=== PATIENT | male | born 1985 | race Caucasian/White ===

== ENCOUNTER 2023-10-10 08:51 | Outpatient (CLI) | payer BC | END 2023-10-10 08:52 | disposition home or self-care (01) | LOC: CT 08:51 | PROVIDERS: ATTEND Orthopaedic Surgery | DX: M17.32 Unilateral post-traumatic osteoarthritis, left knee (principal) ==

== ENCOUNTER 2023-10-17 12:59 | Outpatient (CLI) | payer BC | END 2023-10-17 13:00 | disposition home or self-care (01) | LOC: LABBT 12:59 | PROVIDERS: ATTEND Orthopaedic Surgery | DX: Z01.818 Encounter for other preprocedural examination (principal); M17.32 Unilateral post-traumatic osteoarthritis, left knee | CPT/HCPCS: 71046; 93005; 93010 ==

== ENCOUNTER 2023-10-22 05:37 | Observation (INO) | payer BC ==
[2023-10-17 13:51] VITALS: BMI 35.5
[2023-10-17 14:57] LABS: #Basophils 0.07 10x3/uL (0.0-0.2); #Monocytes 0.58 10x3/uL (0.0-1.1); #Neutrophils 5.95 10x3/uL (1.5-8.4); %Basophils 0.8 % (0.0-2.0); %Eosinophils 2.3 % (0.0-6.0); %Lymphocytes 21.8 % (18.0-47.0); %Monocytes 6.6 % (0.0-10.0); %Neutrophils 68.2 % (40.0-75.0); Hematocrit 46.7 % (38.8-50.0); Mean Corpuscular HGB CONC 34.3 g/dL (32.0-36.0); Mean Corpuscular Hemoglobin 30.4 pg (27.0-33.0); Mean Corpuscular Volume 88.8 fl (81.2-95.1); Mean Platelet Volume 10.7 fl (7.4-10.4); Platelet Count 233 10x3/uL (150-450); RBC Distribution Width 13.5 % (11.5-14.5); Red Blood Cell (RBC) Count 5.26 10x6/uL (4.32-5.72); White Blood Cell (WBC) Count 8.7 10x3/uL (3.5-10.5)
[2023-10-17 15:05] LABS: INR-International Normal Ratio 0.9; Prothrombin Time 9.6 sec (9.5-12.1)
[2023-10-17 15:11] LABS: Anion Gap 15 mmol/L (10-20); BUN (Urea Nitrogen) 15 mg/dL (8.9-20.6); Calc. Creatinine Clearance 0 mL/min (70-130); Calcium 9.1 mg/dL (7.8-10.44); Carbon Dioxide 20 mmol/L (22-29); Chloride 107 mmol/L (98-107); Estimated GFR 112; Glucose 93 mg/dL (70-105); Potassium 3.9 mmol/L (3.5-5.1); Sodium 138 mmol/L (136-145)
[2023-10-17 15:29] LABS: Bilirubin Neg (Negative); Blood, Urine Negative (Negative); Clarity Clear (Clear); Glucose, Urine (Dipstick) Normal (Negative); Ketone, Urine Negative (Negative); Leukocyte Negative (Negative); Nitrite Negative (Negative); Protein, Urine (Dipstick) Negative (Neg-Trace); Urobilinogen Normal mg/dL (Less than 2)
[2023-10-22] MEDS ORDERED: Sodium Chloride 0.9% 100 ML ONE ×3 (06:08→07:00)
[2023-10-22] MEDS ORDERED: Tranexamic Acid 1,000 MG/10 ML VIAL ONE (06:08)
[2023-10-22] MEDS ORDERED: PROPOFOL 40 ML ONE (06:25)
[2023-10-22] MEDS ORDERED: Fentanyl 250 MCG/5 ML VIAL ONE (06:25)
[2023-10-22] MEDS ORDERED: Midazolam HCl 2 mg/2 ml Vial ONE (06:26)
[2023-10-22] MEDS ORDERED: CEFAZOLIN 2 GM VIAL ONE (07:00)
[2023-10-22] MEDS ORDERED: Bupivacaine 0.25% HCL 30 ML VIAL ONE (07:00)
[2023-10-22] MEDS ORDERED: Vancomycin (BATCH) 2 GM in Premix 1 BAG IVPB SCH (07:00)
[2023-10-22] MEDS ORDERED: fentaNYL 50 mcg/mL 1 mL Vial SLOW IVP PRN (07:22)
[2023-10-22] MEDS ORDERED: Lidocaine 1% PF 5 ML VIAL ONE (07:25)
[2023-10-22] MEDS ORDERED: Bupivacaine HCl 0.5%/Epinephrine 1:200,000/PF 30 ml Vial ONE (07:25)
[2023-10-22] MEDS ORDERED: Rocuronium Bromide 10 MG/ML (10ML VIAL) ONE (07:25)
[2023-10-22] MEDS ORDERED: Promethazine HCl 25 MG/ML VIAL IM PRN ×2 (07:30→10:15)
[2023-10-22] MEDS ORDERED: Ondansetron PF 4 MG/2 ML Vial IVP PRN ×2 (07:30→10:15)
[2023-10-22] MEDS ORDERED: traMADol HCl 50 MG TAB PO PRN ×2 (07:30)
[2023-10-22] MEDS ORDERED: Zolpidem Tartrate 5 MG TAB PO PRN ×2 (07:30→10:15)
[2023-10-22] MEDS ORDERED: Ropivacaine 0.2% 550 ML 550 ML NERVE BLCK SCH (07:30)
[2023-10-22] MEDS ORDERED: Dexamethasone 4 mg/ml Vial ONE (07:35)
[2023-10-22] MEDS ORDERED: Ketorolac Tromethamine 30 MG (1 mL) VIAL ONE ×2 (07:35→14:08)
[2023-10-22] MEDS ORDERED: Ondansetron PF 4 MG/2 ML Vial ONE ×2 (07:35→14:08)
[2023-10-22] MEDS ORDERED: Phenylephrine 10 MG/ML VIAL ONE (08:07)
[2023-10-22] MEDS ORDERED: SUGAMMADEX SODIUM 200 MG/2 ML VIAL ONE ×2 (09:36→09:51)
[2023-10-22] MEDS ORDERED: fentaNYL 50 mcg/mL 1 mL Vial ONE ×2 (10:09→11:11)
[2023-10-22] MEDS ORDERED: Tranexamic Acid 1,000 MG in Sodium Chloride 0.9% 100 ML IVPB SCH (10:15)
[2023-10-22] MEDS ORDERED: diphenhydrAMINE 25 MG CAP PO PRN (10:15)
[2023-10-22] MEDS ORDERED: Acetaminophen 325 MG TAB PO PRN (10:15)
[2023-10-22] MEDS ORDERED: HYDROmorphone 0.5 MG/0.5 ML SYRINGE ONE ×2 (10:25→11:02)
[2023-10-22] MEDS: Sodium Chloride 0.9% 1,000 ML IV SCH (13:46)
[2023-10-22] MEDS: CEFAZOLIN 2 GM in Sodium Chloride 0.9% 100 ML IVPB SCH (13:47)
[2023-10-22] MEDS: HYDROcodone/Acetaminophen 10/325 mg Tablet PO PRN ×2 (13:52→18:26)
[2023-10-22] MEDS ORDERED: [UNRECOGNIZED DRUG - OTHER] PO SCH (15:00)
[2023-10-22] MEDS ORDERED: AMPHETAMINE PO SCH (15:00)
[2023-10-22] MEDS ORDERED: DEXTROAMPHETAMINE PO SCH (15:00)
[2023-10-22] MEDS: Ketorolac Tromethamine 30 MG (1 mL) VIAL IVP SCH ×2 (15:06→15:09)
[2023-10-22] MEDS: Dextroamphetamine/Amphetamine [Adderall 20 Mg Tablet PO SCH (15:48)
[2023-10-22] MEDS: Senokot S 8.6-50 MG TAB PO SCH (19:56)
[2023-10-22] MEDS: Vancomycin 2 GM in Sodium Chloride 0.9% 500 ML IVPB SCH (20:01)
[2023-10-22] MEDS: Ferrous Gluconate 324 MG TAB PO SCH (20:19)
[2023-10-22] MEDS: Aspirin 81 mg Enteric Coated Tablet PO SCH (22:02)
[2023-10-23 03:16] VITALS: TEMP 98.1
[2023-10-23 04:00] LABS: Hematocrit 35.2 % (42.0-52.0); Mean Corpuscular HGB CONC 34.1 g/dL (32.0-36.0); Mean Corpuscular Hemoglobin 30.5 pg (27.0-31.0); Mean Corpuscular Volume 89.6 fL (78.0-98.0); Mean Platelet Volume 10.6 fL (7.4-10.4); Platelet Count 170 10x3/uL (130-400); RBC Distribution Width 13.8 % (11.5-14.5); Red Blood Cell (RBC) Count 3.93 mill/uL (4.70-6.10)
[2023-10-23 08:42] VITALS: BP 121/77
[2023-10-23] MEDS: Multivitamin W/ Minerals 1 TAB PO SCH (08:54)
== END 2023-10-23 10:25 | disposition home or self-care (01) ==
LOC: SDC 05:37 → SURG A 12:06
PROVIDERS: ADMIT Orthopaedic Surgery; ATTEND Orthopaedic Surgery
PROC: 0SRD0JZ Replacement of Left Knee Joint with Synthetic Substitute, Open Approach (ICD-10-PCS; principal; 2023-10-23)
DX: M17.32 Unilateral post-traumatic osteoarthritis, left knee (principal); Z87.891 Personal history of nicotine dependence; Z79.899 Other long term (current) drug therapy
CPT/HCPCS: 36415; 80048; 81003; 85025; 85027; 85610; 86850; 86900; 86901; 87081; A4306; C1713; C1776; C1889; J0665; J1100; J1170; J1885; J2250; J2371; J2405; J2704; J2795; J3010; J3370; J3490; J7030; J7050